=== PATIENT | female | born 1945 | race American Indian/Alaskan Native ===

== ENCOUNTER 2018-07-19 13:00 | Outpatient (CLI) | payer MEDICARE | END 2018-07-19 13:01 | disposition home or self-care (01) | LOC: C.LAB 13:00 | DX: N18.4 Chronic kidney disease, stage 4 (severe) (principal) ==

== ENCOUNTER 2018-09-10 11:40 | Outpatient (CLI) | payer MEDICARE | END 2018-09-10 11:41 | disposition home or self-care (01) | LOC: C.LAB 11:40 | DX: N18.4 Chronic kidney disease, stage 4 (severe) (principal) ==